=== PATIENT | female | born 1980 | race Caucasian/White ===

== ENCOUNTER 2018-08-24 11:41 | Emergency (ER) | payer MEDICAID ==
[2018-08-24] MEDS: ONDANSETRON (ODT) 4 MG TAB ODT (13:22)
[2018-08-24] MEDS: HYDROCODONE/APAP (5/325) TAB PO (13:23)
== END 2018-08-24 16:09 | disposition home or self-care (01) ==
LOC: FTE 16:09
DX: M79.602 Pain in left arm (principal)
CPT/HCPCS: 73030; 99283-25